=== PATIENT | female | born 1980 | race Caucasian/White ===

== ENCOUNTER 2016-06-29 08:13 | Emergency (ER) | payer OTHER ==
[2016-06-29 08:25] VITALS: BP 132/84
--- NOTE | 2016-06-29 08:54 | UC ---
Respiratory Complaint HPI - HPI Summary HPI Summary: The patient comes in today for: 1. Sinus pressure: Onset: 3 days. Palliative/provocative: Nothing makes her symptoms better or worse except sitting up. Quality: Pressure. Region: Frontal, maxillary and ethmoid sinuse areas. Severity: 3/10 Time: Constant. Associated symptoms: Rhinitis: Present, clear. Cough: "every once in a while." FEvers: No temperature taken--but has had chills. Patient wants a "Z-pack" to make herself better. * - History of Current Complaint Stated Complaint: SINUSES Time Seen by Provider: 06/29/16 08:23 Hx Obtained From: Patient Hx Last Menstrual Period: 06/29/16 ?: No - Allergies/Home Medications Allergies/Adverse Reactions: Allergies Allergy/AdvReac Type Severity Reaction Status Date / Time No Known Allergies Allergy Verified 06/29/16 08:24 Home Medications: Home Medications Aspirin [Lucille Aspirin] 650 mg PO ONCE 06/29/16 [History Confirmed 06/29/16] PMH/Surg Hx/FS Hx/Imm Hx Previously Healthy: No - Left shoulder pain/spasm, neck spasm (on Flexeril equivalent by her report) Endocrine History Of: Reports: Diabetes - Gestational diabetes. Denies: Thyroid Disease, Hyperthyroidism, Hypothyroidism, Dyslipidemia Cardiovascular History Of: Denies: Cardiac Disorders, Hypertension, Pacemaker/ICD, Myocardial Infarction , Congestive Heart Failure, Atrial Fibrillation, Deep Vein Thrombosis, Bleeding Disorders Respiratory History Of: Denies: COPD, Asthma, Bronchitis, Pneumonia, Pulmonary Embolism GI/ History Of: Denies: Gastroesophageal Reflux, Ulcer, Gastrointestinal Bleed, Gall Bladder Disease, Kidney Stones, Diverticulitis, Renal Disease, Urosepsis Neurological History Of: Denies: TIA, CVA, Dementia, Seizures, Migraine Psychological History Of: Reports: Anxiety, Depression - Not on medications for these three conditions--"just got off of them.", Post Traumatic Stress Disorder Denies: Bipolar Disorder, Schizophrenia Cancer History Of: Denies: Lung Cancer, Colorectal Cancer, Breast Cancer, Prostate Cancer, Cervical Cancer Other History Of: Anticoagulant Therapy - She is taking aspirin for her sinus symptoms. Negative For: HIV, Hepatitis B, Hepatitis C - Surgical History Surgical History: Yes Surgery Procedure, Year, and Place: L shoulder - Family History Known Family History: Positive: Cardiac Disease, Hypertension - Social History Occupation: Employed Full-time Alcohol Use: Rare Substance Use Type: None Smoking Status (MU): Light Every Day Tobacco Smoker Type: Cigarettes Amount Used/How Often: 1/4-1/2 ppd Length of Time of Smoking/Using Tobacco: since age 12 Have You Smoked in the Last Year: Yes Review of Systems Constitutional: Negative Skin: Negative Eyes: Negative ENT: Nasal Discharge Respiratory: Cough Cardiovascular: Negative Gastrointestinal: Negative Genitourinary: Negative All Other Systems Reviewed And Are Negative: Yes Physical Exam Triage Information Reviewed: Yes Appearance: Well-Appearing, No Pain Distress, Well-Nourished Vital Signs: Initial Vital Signs Temp 98.3 F 06/29/16 08:19 Pulse 93 06/29/16 08:19 Resp 16 06/29/16 08:19 BP 132/84 06/29/16 08:19 Pulse Ox 100 06/29/16 08:19 Vital Signs Reviewed: Yes Eyes: Positive: Conjunctiva Clear. Negative: Discharge ENT: Positive: Hearing grossly normal, Nasal drainage, Other: - There is tenderness to palpation of her frontal and maxillary sinuses.. Negative: Pharyngeal erythema, Nasal congestion, TM bulging, TM dull, TM red, Tonsillar swelling, Tonsillar exudate Dental: Negative: Gross Decay/Caries @, Dental Fracture @ Neck: Positive: Supple, Nontender, No Lymphadenopathy. Negative: Nuchal Rigidity Respiratory: Positive: Chest non-tender, Lungs clear, No respiratory distress, No accessory muscle use. Negative: Crackles, Wheezing Cardiovascular: Positive: RRR, No Murmur Abdomen Description: Positive: Nontender, No Organomegaly, Soft. Negative: Distended, Guarding Musculoskeletal: Positive: Strength Intact, ROM Intact, No Edema Neurological: Positive: Alert, Muscle Tone Normal Psychological: Positive: Age Appropriate Behavior, Consolable Skin: Negative: rashes, breakdown UC Diagnostic Evaluation - Laboratory O2 Sat by Pulse Oximetry: 100 Respiratory Course/Dx - Course Course Of Treatment: Patient was told that I could give her the Z-pack that she wants, but did not think it would help her at this time. She was told that if her symptoms continue and she has continued sinus pressure with purulent nasal discharge or productive cough, she may then find the Z-pack helpful. - Differential Dx/Diagnosis Differential Diagnosis/HQI/PQRI: Bronchitis, Sinusitis Provider Diagnoses: Upper respiratory infection. Viral sinusitis Discharge - Discharge Plan Condition: Stable Disposition: HOME Patient Education Materials: Upper Respiratory Infection (ED), Sinusitis (ED) Forms: *Work Release Referrals: Wilma Atkins PA [Primary Care Provider] - 1 Week (Please see your primary care provider in about a week to see how well you are doing. If you get worse, please be seen sooner.)
== END 2016-06-29 09:18 | disposition home or self-care (01) ==
LOC: UCCORT 08:13
DX: J06.9 Acute upper respiratory infection, unspecified (principal); J32.8 Other chronic sinusitis; B97.89 Other viral agents as the cause of diseases classified elsewhere; F17.210 Nicotine dependence, cigarettes, uncomplicated
CPT/HCPCS: 99212; G0463

== ENCOUNTER 2019-03-03 17:06 | Emergency (ER) | payer BC ==
[2019-03-03 18:01] VITALS: BP 131/87
--- NOTE | 2019-03-03 18:14 | UC ---
Complaint Female HPI - HPI Summary HPI Summary: 39-year-old female who complains of white vaginal discharge with vaginal itching over the past few days. - History Of Current Complaint Chief Complaint: UCGU Stated Complaint: PERSONAL Time Seen by Provider: 03/03/19 17:55 Hx Obtained From: Patient Hx Last Menstrual Period: 02/13/19 ?: No Onset/Duration: Gradual Onset Timing: Constant Severity Initially: Mild Severity Currently: Mild Pain Intensity: 0 Aggravating Factor(s): Nothing Alleviating Factor(s): Nothing, Other - Patient has been taking Monistat for the past 2 days without improvement. Associated Signs And Symptoms: Positive: Vaginal Bleeding/Discharge, Vaginal Discharge - Wait - Allergies/Home Medications Allergies/Adverse Reactions: Allergies Allergy/AdvReac Type Severity Reaction Status Date / Time No Known Allergies Allergy Verified 03/03/19 18:00 Home Medications: Home Medications Miconazole Nitrate [Monistat 7] 44 gm VG BEDTIME 03/03/19 [History Confirmed ] Phentermine HCl 15 mg PO DAILY 03/03/19 [History Confirmed 03/03/19] hydrOXYzine HCl [Hydroxyzine HCl] 50 mg PO BEDTIME 03/03/19 [History Confirmed 03/03/19] PMH/Surg Hx/FS Hx/Imm Hx Previously Healthy: Yes Endocrine History: Diabetes - Gestational diabetes history. Other History Of: Anticoagulant Therapy - She is taking aspirin for her sinus symptoms. Negative For: HIV, Hepatitis B, Hepatitis C - Surgical History Surgical History: Yes Surgery Procedure, Year, and Place: L shoulder - Family History Known Family History: Positive: Cardiac Disease, Hypertension - Social History Lives: With Family Alcohol Use: Occasionally Substance Use Type: None Smoking Status (MU): Former Smoker Type: Cigarettes Amount Used/How Often: 1/4-1/2 ppd Length of Time of Smoking/Using Tobacco: since age 12 Have You Smoked in the Last Year: Yes When Did the Patient Quit Smoking/Using Tobacco: 2017 Review of Systems All Other Systems Reviewed And Are Negative: Yes Genitourinary: Positive: Vaginal/Penile Itching, Vaginal/Penile Discharge - White vaginal discharge.. Negative: Vaginal/Penile Burning, Vaginal/Penile Pain , Vaginal/Penile Tenderness Is Patient Immunocompromised?: No Physical Exam Triage Information Reviewed: Yes Appearance: Well-Appearing, No Pain Distress, Well-Nourished Vital Signs: Initial Vital Signs Temp 98.1 F 03/03/19 17:52 Pulse 91 03/03/19 17:52 Resp 16 03/03/19 17:52 BP 131/87 03/03/19 17:52 Pulse Ox 100 03/03/19 17:52 Vital Signs Reviewed: Yes Respiratory: Positive: Lungs clear, Normal breath sounds, No respiratory distress, No accessory muscle use Cardiovascular: Positive: RRR, No Murmur, Pulses Normal, Brisk Capillary Refill Abdomen Description: Positive: Nontender, No Organomegaly, Soft. Negative: CVA Tenderness (R), CVA Tenderness (L) Bowel Sounds: Positive: Present Pelvic Exam: Positive: Other - Patient refused a pelvic exam. She would like to try the Diflucan first and then follow-up with her [facility] physician if she has no improvement Musculoskeletal Exam: Normal Neurological Exam: Normal Psychological Exam: Normal Skin Exam: Normal Complaint Female Dx - Course Course Of Treatment: The patient is comfortable here. I'm going to give her Diflucan 150 mg to take today and then repeat in 5-7 days. She prefers not have a pelvic exam here and would rather follow-up with her [employer] [facility] physician if no improvement in 3 or 4 days. - Differential Dx/Diagnosis Provider Diagnosis: Yeast infection Discharge ED - Sign-Out/Discharge Documenting (check all that apply): Patient Departure All imaging exams completed and their final reports reviewed: No Studies - Discharge Plan Condition: Good Disposition: HOME Prescriptions: Fluconazole 150 MG TAB* [Diflucan 150 MG TAB*] 150 mg PO UC ONCE 1 Days #1 tablet Patient Education Materials: Yeast Infection (ED) Referrals: Hanna Mullen NP [Primary Care Provider] - Additional Instructions: You can take 1 Diflucan today and then repeated in 5-7 days from now if you have continued symptoms. Definite follow-up with your [employer] person early next week if no improvement. - Billing Disposition and Condition Condition: GOOD Disposition: Home
== END 2019-03-03 18:19 | disposition home or self-care (01) ==
LOC: UCCORT 17:06
DX: B37.3 Candidiasis of vulva and vagina (principal); Z87.891 Personal history of nicotine dependence
CPT/HCPCS: 99212; G0463

== ENCOUNTER 2019-03-21 08:11 | Emergency (ER) | payer BC ==
[2019-03-21 08:51] VITALS: BP 114/82
--- NOTE | 2019-03-21 08:55 | UC ---
Ear Complaint HPI - HPI Summary HPI Summary: Patient is a 39-year-old female presenting with nasal congestion and bilateral ear pain 2 weeks that has progressively worsened over the past few days. Notes worse pain in right ear. Notes mild sinus tenderness. Notes mild sore throat and strep exposure from daughter. Has taken ibuprofen for pain relief. Denies fevers and chills. Denies shortness of breath and wheezing. - History of Current Complaint Chief Complaint: UCEar Stated Complaint: BILATERAL EAR PAIN, HEAD CONGESTION Hx Obtained From: Patient Hx Last Menstrual Period: 03/15/19 Onset/Duration: Gradual Onset, Lasting Weeks Severity Initially: Mild Severity Currently: Moderate Pain Intensity: 5 Pain Scale Used: 0-10 Numeric - Allergies/Home Medications Allergies/Adverse Reactions: Allergies Allergy/AdvReac Type Severity Reaction Status Date / Time No Known Allergies Allergy Verified 03/21/19 08:47 Home Medications: Home Medications Naproxen Sodium [Aleve] 440 mg PO Q12H PRN 03/21/19 [History Confirmed 03/21/19] PMH/Surg Hx/FS Hx/Imm Hx Previously Healthy: Yes Other History Of: Anticoagulant Therapy - She is taking aspirin for her sinus symptoms. Negative For: HIV, Hepatitis B, Hepatitis C - Surgical History Surgical History: Yes Surgery Procedure, Year, and Place: L shoulder - Family History Known Family History: Positive: Cardiac Disease, Hypertension - Social History Alcohol Use: Occasionally Substance Use Type: None Smoking Status (MU): Former Smoker Type: Cigarettes Amount Used/How Often: 1/4-1/2 ppd Length of Time of Smoking/Using Tobacco: since age 12 Have You Smoked in the Last Year: Yes When Did the Patient Quit Smoking/Using Tobacco: 2017 Review of Systems All Other Systems Reviewed And Are Negative: Yes Constitutional: Positive: Negative. Negative: Fever, Chills Eyes: Positive: Negative ENT: Positive: Sore Throat, Ear Ache, Sinus Congestion, Sinus Pain/Tenderness. Negative: Nasal Discharge Respiratory: Positive: Negative. Negative: Cough Cardiovascular: Positive: Negative Gastrointestinal: Positive: Negative Musculoskeletal: Positive: Negative Neurological: Positive: Negative. Negative: Headache Physical Exam Triage Information Reviewed: Yes Appearance: Well-Appearing, No Pain Distress, Well-Nourished Vital Signs: Initial Vital Signs Temp 97.8 F 03/21/19 08:46 Pulse 90 03/21/19 08:46 Resp 16 03/21/19 08:46 BP 114/82 03/21/19 08:46 Pulse Ox 99 03/21/19 08:46 Vital Signs Reviewed: Yes Eyes: Positive: Conjunctiva Clear ENT: Positive: Hearing grossly normal, Pharyngeal erythema, Nasal congestion, TM dull - right TM, TM red - right TM, Sinus tenderness, Uvula midline. Negative: Nasal drainage, TMs normal, TM bulging, Tonsillar swelling, Tonsillar exudate Neck exam: Normal Neck: Positive: Supple, Nontender, No Lymphadenopathy Respiratory Exam: Normal Respiratory: Positive: Lungs clear, Normal breath sounds, No respiratory distress, No accessory muscle use Cardiovascular Exam: Normal Cardiovascular: Positive: RRR Neurological: Positive: Alert Psychological: Positive: Age Appropriate Behavior Ear Complaint Course/Dx - Course Course Of Treatment: In treating the patient with amoxicillin for acute otitis media and exposure to strep throat. Instructed the patient to continue with Aleve and nasal sprays as directed for symptomatic relief. Instructed the patient follow up with PCP if symptoms persist. Patient voiced understanding and agreed to the treatment plan. - Differential Dx/Diagnosis Provider Diagnosis: Acute otitis media, Strep throat exposure Discharge ED - Sign-Out/Discharge Documenting (check all that apply): Patient Departure All imaging exams completed and their final reports reviewed: No Studies - Discharge Plan Condition: Stable Disposition: HOME Prescriptions: Amoxicillin PO (*) [Amoxicillin 500 MG CAP*] 500 mg PO TID #21 cap Patient Education Materials: Ear Infection (ED) Referrals: Hanna Mullen HISTOLOGIST [Primary Care Provider] - If Needed Additional Instructions: As discussed, take amoxicillin as prescribed for the treatment of your ear infection. This will also treat for strep throat, since you have been exposed to it. You may take ibuprofen and/or tylenol as directed for fever and pain relief. You may continue to use nasal sprays as directed for symptomatic relief. Get plenty of rest and fluids. Follow-up with your PCP if symptoms do not resolve in 10 days. - Billing Disposition and Condition Condition: STABLE Disposition: Home - Attestation Statements Provider Attestation: I was available for consult. This patient was seen by the [facility]. The patient was not presented to, seen by, or examined by me. -Makenna
== END 2019-03-21 09:08 | disposition home or self-care (01) ==
LOC: UCCORT 08:11
DX: H66.93 Otitis media, unspecified, bilateral (principal); J02.9 Acute pharyngitis, unspecified; R09.81 Nasal congestion; Z79.82 Long term (current) use of aspirin; Z87.891 Personal history of nicotine dependence
CPT/HCPCS: 99212; G0463